=== PATIENT | male | born 2000 | race Hispanic/Latino ===

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

== ENCOUNTER 2019-04-29 09:42 | Emergency (ER) | payer MEDICAID, OTHER | END 2019-04-29 10:02 | disposition home or self-care (01) | LOC: EEVIPCON 09:42 → EDH 09:42 | DX: G89.29 Other chronic pain (principal); M25.511 Pain in right shoulder ==

== ENCOUNTER 2023-09-06 16:52 | Emergency (ER) | payer BC ==
[~2023-09-06] VITALS: Ht 170.2 cm; Wt 88.9 kg
[2023-09-06 17:00] VITALS: BP 112/76; PULSE 84; RESP 18
== END 2023-09-06 18:16 | disposition home or self-care (01) ==
LOC: EDH 16:52
DX: S60.122A Contusion of left index finger with damage to nail, initial encounter (principal); W20.8XXA Other cause of strike by thrown, projected or falling object, initial encounter; Y93.89 Activity, other specified; Y92.89 Other specified places as the place of occurrence of the external cause; Y99.8 Other external cause status
CPT/HCPCS: 11740